=== PATIENT | female | born 1965 | race Caucasian/White ===

== ENCOUNTER 2020-01-23 23:28 | Inpatient (IN) | payer MEDICARE ==
[~2020-01-23] VITALS: Ht 154.9 cm; Wt 70.3 kg
[2020-01-24] MEDS ORDERED: FENTANYL CITRATE/PF 50MCG/ML 2ML VIAL IV ONE
[2020-01-24] MEDS ORDERED: NITROGLYCERIN 0.4MG TABLET SL SL ONE (00:30)
[2020-01-24 00:37] LABS: CHLORIDE 107 mEq/L (98-107)
[2020-01-24 00:38] LABS: BASOPHILS % 0.4 % (0.0-2.0); HEMATOCRIT. 32.2 % (36.0-48.0); HEMOGLOBIN. 10.4 g/dL (12.0-16.0); LYMPHOCYTES % 28.4 % (20.0-50.0); MEAN CORPUSCULAR HEMOGLOBIN 25.9 pg (28.0-32.0); MEAN CORPUSCULAR VOLUME 80.2 fL (81.0-99.0); MEAN PLATELET VOLUME 8.4 fl (7.4-10.4); MONOCYTES % 8.2 % (2.0-8.0); PLATELET 317 x1000/uL (130-400); RED BLOOD CELL COUNT 4.02 mill/uL (4.2-5.4); RED CELL DISTRIBUTION WIDTH 18.4 % (11.6-14.6)
[2020-01-24 00:41] LABS: ETHANOL BLOOD < 10 mg/dL
[2020-01-24] MEDS ORDERED: IOHEXOL-350 100 ML BOTTLE ONE (00:58)
[2020-01-24] MEDS ORDERED: FUROSEMIDE 20MG/2ML VIAL IVP ONE (01:00)
[2020-01-24] MEDS ORDERED: ASPIRIN 81MG TABLET PO ONE (02:00)
[2020-01-24] MEDS ORDERED: MORPHINE SULFATE 4 MG/ML CPJ (NOT FOR IM USE) IV ONE (02:00)
[2020-01-24 08:45] VITALS: BP 92/67
[2020-01-24] MEDS ORDERED: FURO-152 MT (10:23)
[2020-01-24] MEDS ORDERED: ASPI-986 MT (10:23)
[2020-01-24] MEDS ORDERED: CLOP75TA4 MT (10:23)
[2020-01-24] MEDS ORDERED: PANT40TA4 MT (11:23)
[2020-01-24] MEDS ORDERED: SACU1TAB MT (11:23)
[2020-01-24] MEDS ORDERED: CEPH500C2 MT (11:23)
[2020-01-24] MEDS ORDERED: CARV3.1242 MT (11:23)
[2020-01-24] MEDS ORDERED: ASPI-1158 MT (11:23)
[2020-01-24] MEDS ORDERED: SUCR1TAB PO (11:23)
[2020-01-24] MEDS ORDERED: SPIR25TA6 MT (11:23)
[2020-01-24] MEDS ORDERED: AMLO2.5T45 MT (11:23)
[2020-01-24] MEDS ORDERED: ATOR40TA70 MT (11:23)
[2020-01-24 12:14] VITALS: BP 90/67
[2020-01-24] MEDS ORDERED: REGADENOSON 0.4 MG/5 ML IV NR (13:00)
[2020-01-24] MEDS: CLOPIDOGREL 75MG TABLET PO SCH (13:28)
[2020-01-24] MEDS: ACETAMINOPHEN 325MG TABLET PO PRN ×2 (13:28→20:44)
[2020-01-24] MEDS ORDERED: ONDANSETRON HCL 4MG/2ML INJ IV PRN ×2 (13:30→16:15)
[2020-01-24] MEDS ORDERED: ACETAMINOPHEN 325MG TABLET PO PRN ×3 (13:30→16:15)
[2020-01-24] MEDS ORDERED: MAGNESIUM/ALUMINUM HYDROXIDE/SIMETHICONE 30ML UDC PO PRN ×2 (13:30→16:15)
[2020-01-24] MEDS ORDERED: CLONIDINE 0.1MG TABLET PO PRN ×2 (13:30→16:15)
[2020-01-24] MEDS: SODIUM CHLORIDE 0.9% INJ 3ML FLUSH IVF SCH ×2 (13:33→21:03)
[2020-01-24 15:48] LABS: CREATINE KINASE MB FRACTION 1.2 ng/mL (0.5-3.6)
[2020-01-24 15:49] LABS: T4 FREE 1.24 ng/dL (0.76-1.46)
[2020-01-24 16:00] VITALS: BP 113/79
[2020-01-24] MEDS ORDERED: MAGNESIUM HYDROXIDE 400MG/5ML 30ML UDC PO PRN (16:15)
[2020-01-24] MEDS ORDERED: DIPHENHYDRAMINE 50MG/ML VIAL IV PRN (16:15)
[2020-01-24] MEDS ORDERED: SIMETHICONE 80MG TABLET CHEW PO PRN (16:15)
[2020-01-24] MEDS ORDERED: BISACODYL 10MG SUPP PR PRN (16:15)
[2020-01-24] MEDS: DOCUSATE SODIUM 100MG CAPSULE PO SCH (17:12)
[2020-01-24] MEDS: SUCRALFATE 1 G/10 ML UDC PO SCH ×2 (17:12→20:45)
[2020-01-24] MEDS: PANTOPRAZOLE 40MG DR TABLET PO SCH (17:12)
[2020-01-24] MEDS ORDERED: ENOXAPARIN 80MG/0.8ML SYR SUBCUT SCH (18:00)
[2020-01-24 20:00] VITALS: BP 99/71
[2020-01-24] MEDS ORDERED: ZOLPIDEM TARTRATE 5MG TABLET PO PRN (21:00)
[2020-01-24] MEDS ORDERED: SODIUM CHLORIDE 0.9% INJ 3ML FLUSH IVF SCH (22:00)
[2020-01-25] VITALS: BP 124/82
[2020-01-25 00:05] LABS: CREATINE KINASE MB FRACTION 1.4 ng/mL (0.5-3.6)
[2020-01-25 04:00] VITALS: BP 100/71
[2020-01-25] MEDS: SODIUM CHLORIDE 0.9% INJ 3ML FLUSH IVF SCH ×3 (06:18→20:44)
[2020-01-25] MEDS: SUCRALFATE 1 G/10 ML UDC PO SCH ×4 (06:36→20:43)
[2020-01-25] MEDS: PANTOPRAZOLE 40MG DR TABLET PO SCH (06:36)
[2020-01-25 07:24] LABS: CREATINE KINASE MB FRACTION 1.4 ng/mL (0.5-3.6)
[2020-01-25 07:57] VITALS: BP 109/77
[2020-01-25 07:59] LABS: INR 1.3; PROTHROMBIN TIME 13.1 sec (9.6-11.0)
[2020-01-25] MEDS: CLOPIDOGREL 75MG TABLET PO SCH (09:00)
[2020-01-25] MEDS: DOCUSATE SODIUM 100MG CAPSULE PO SCH ×2 (09:00→17:09)
[2020-01-25] MEDS: ASPIRIN 81MG TABLET PO SCH (09:00)
[2020-01-25] MEDS ORDERED: REGADENOSON 0.4 MG/5 ML IV ONE (09:07)
[2020-01-25 11:34] VITALS: BP 112/83
[2020-01-25] MEDS: APIXABAN 5 MG TABLET PO SCH ×2 (14:14→17:09)
[2020-01-25 16:37] VITALS: BP 100/79
[2020-01-25] MEDS: METOCLOPRAMIDE HCL 10MG/2ML VIAL IV SCH (18:06)
[2020-01-25 20:00] VITALS: BP 114/77
[2020-01-25] MEDS: PANTOPRAZOLE SODIUM 40 MG/VIAL IV SCH (20:50)
[2020-01-25] MEDS: MORPHINE SULFATE 4 MG/ML CPJ (NOT FOR IM USE) IV PRN (20:51)
[2020-01-26] VITALS: BP 105/78
[2020-01-26] MEDS: METOCLOPRAMIDE HCL 10MG/2ML VIAL IV SCH ×4 (00:25→18:23)
[2020-01-26 04:00] VITALS: BP 108/77
[2020-01-26] MEDS: SODIUM CHLORIDE 0.9% INJ 3ML FLUSH IVF SCH ×2 (06:31→13:41)
[2020-01-26] MEDS: SUCRALFATE 1 G/10 ML UDC PO SCH ×4 (06:32→22:10)
[2020-01-26 07:37] LABS: BASOPHILS % 0.8 % (0.0-2.0); EOSINOPHILS % 1.7 % (0.0-5.0); HEMATOCRIT. 31.4 % (36.0-48.0); LYMPHOCYTES % 28.2 % (20.0-50.0); MEAN CORPUSCULAR HEMOGLOBIN 25.8 pg (28.0-32.0); MEAN CORPUSCULAR VOLUME 80.9 fL (81.0-99.0); MEAN PLATELET VOLUME 8.6 fl (7.4-10.4); MONOCYTES % 7.5 % (2.0-8.0); NEUTROPHILS % 61.8 % (40.0-76.0); PLATELET 282 x1000/uL (130-400); RED BLOOD CELL COUNT 3.88 mill/uL (4.2-5.4); RED CELL DISTRIBUTION WIDTH 18.3 % (11.6-14.6)
[2020-01-26 07:46] LABS: INR 1.3; PARTIAL THROMBOPLASTIN TIME 30.8 sec (23.4-31.0); PROTHROMBIN TIME 13.9 sec (9.6-11.0)
[2020-01-26 08:00] VITALS: BP 107/77
[2020-01-26 08:07] LABS: CHLORIDE 106 mEq/L (98-107)
[2020-01-26] MEDS: DOCUSATE SODIUM 100MG CAPSULE PO SCH ×2 (09:00→17:00)
[2020-01-26] MEDS: PANTOPRAZOLE SODIUM 40 MG/VIAL IV SCH ×2 (09:33→22:10)
[2020-01-26] MEDS: ASPIRIN 81MG TABLET PO SCH (09:36)
[2020-01-26] MEDS: APIXABAN 5 MG TABLET PO SCH ×2 (09:36→17:00)
[2020-01-26] MEDS: CLOPIDOGREL 75MG TABLET PO SCH (09:36)
[2020-01-26 15:23] VITALS: BP 100/76
[2020-01-26] MEDS ORDERED: MIDAZOLAM HCL 5 MG/5 ML VIAL ONE (16:40)
[2020-01-26] MEDS ORDERED: FENTANYL CITRATE/PF 50MCG/ML 2ML VIAL ONE (16:40)
[2020-01-26] MEDS ORDERED: MIDAZOLAM HCL 5 MG/5 ML VIAL IV PRN (16:43)
[2020-01-26] MEDS ORDERED: FENTANYL CITRATE/PF 50MCG/ML 2ML VIAL IV PRN (16:44)
[2020-01-27] MEDS: SODIUM CHLORIDE 0.9% INJ 3ML FLUSH IVF SCH ×4 (02:26→22:30)
[2020-01-27] MEDS: METOCLOPRAMIDE HCL 10MG/2ML VIAL IV SCH ×4 (02:26→17:31)
[2020-01-27] MEDS: SUCRALFATE 1 G/10 ML UDC PO SCH ×4 (06:25→22:29)
[2020-01-27 08:00] VITALS: BP 111/82
[2020-01-27] MEDS ORDERED: APIXABAN 5 MG TABLET PO SCH (09:00)
[2020-01-27] MEDS: DOCUSATE SODIUM 100MG CAPSULE PO SCH ×2 (09:01→17:31)
[2020-01-27] MEDS: ASPIRIN 81MG TABLET PO SCH (09:01)
[2020-01-27] MEDS: PANTOPRAZOLE SODIUM 40 MG/VIAL IV SCH ×2 (09:02→22:29)
[2020-01-27] MEDS: CLOPIDOGREL 75MG TABLET PO SCH (09:02)
[2020-01-27] MEDS: MORPHINE SULFATE 4 MG/ML CPJ (NOT FOR IM USE) IV PRN ×2 (09:34→15:39)
[2020-01-27] MEDS: APIXABAN 5 MG TABLET PO SCH ×2 (11:28→17:32)
[2020-01-27 12:00] VITALS: BP 116/79
[2020-01-27] MEDS: ACETAMINOPHEN 325MG TABLET PO PRN (14:41)
[2020-01-27 16:00] VITALS: BP 109/76
[2020-01-27 20:00] VITALS: BP 92/71
[2020-01-28] VITALS (9 sets, daily range): BP systolic 92–139; BP diastolic 71–97
[2020-01-28] MEDS: METOCLOPRAMIDE HCL 10MG/2ML VIAL IV SCH ×3 (00:01→12:15)
[2020-01-28] MEDS: MORPHINE SULFATE 4 MG/ML CPJ (NOT FOR IM USE) IV PRN (05:53)
[2020-01-28] MEDS: SUCRALFATE 1 G/10 ML UDC PO SCH ×2 (07:01→12:13)
[2020-01-28] MEDS: SODIUM CHLORIDE 0.9% INJ 3ML FLUSH IVF SCH ×2 (07:01→14:00)
[2020-01-28] MEDS ORDERED: FAMOTIDINE 20MG/2ML VIAL IV SCH (09:00)
[2020-01-28] MEDS: ASPIRIN 81MG TABLET PO SCH (12:11)
[2020-01-28] MEDS: CLOPIDOGREL 75MG TABLET PO SCH (12:11)
[2020-01-28] MEDS: DOCUSATE SODIUM 100MG CAPSULE PO SCH (12:11)
[2020-01-28] MEDS: APIXABAN 5 MG TABLET PO SCH (12:14)
[2020-01-31] MEDS ORDERED: APIX5TAB PO (02:37)
== END 2020-01-28 16:24 | disposition home or self-care (01) | DRG 391 ==
LOC: ER 23:28 → 6WST 01-24 02:41 → ENRESERV 01-24 08:10
PROVIDERS: ADMIT Internal Medicine; ATTEND Internal Medicine
PROC: 0DB78ZX Excision of Stomach, Pylorus, Via Natural or Artificial Opening Endoscopic, Diagnostic (ICD-10-PCS; principal; 2020-01-26)
DX: K29.70 Gastritis, unspecified, without bleeding (principal); I50.43 Acute on chronic combined systolic (congestive) and diastolic (congestive) heart failure; I82.401 Acute embolism and thrombosis of unspecified deep veins of right lower extremity; I42.9 Cardiomyopathy, unspecified; E87.2 Acidosis; I69.354 Hemiplegia and hemiparesis following cerebral infarction affecting left non-dominant side; I25.10 Atherosclerotic heart disease of native coronary artery without angina pectoris; K44.9 Diaphragmatic hernia without obstruction or gangrene; K21.9 Gastro-esophageal reflux disease without esophagitis; D64.9 Anemia, unspecified; E78.00 Pure hypercholesterolemia, unspecified; Z20.828 Contact with and (suspected) exposure to other viral communicable diseases; I08.1 Rheumatic disorders of both mitral and tricuspid valves; Z95.1 Presence of aortocoronary bypass graft; Z80.0 Family history of malignant neoplasm of digestive organs; Z82.49 Family history of ischemic heart disease and other diseases of the circulatory system; Z95.810 Presence of automatic (implantable) cardiac defibrillator; Z83.3 Family history of diabetes mellitus; Z98.82 Breast implant status; I25.2 Old myocardial infarction; Z79.899 Other long term (current) drug therapy; I25.9 Chronic ischemic heart disease, unspecified; K30 Functional dyspepsia; I11.0 Hypertensive heart disease with heart failure
CPT/HCPCS: 36415; 71045; 71275; 78452; 80053; 80061; 80320; 82550; 82553; 83036; 83605; 83880; 84439; 84443; 84484; 85025; 85379; 86850; 86900; 87426; 88305; 93005; 93017; 93306; 93970; 97162; 97166; 97168; 99285; A9500; C9113; J1940; J2250; J2270; J2765; J2785; J3010; J3490; J7040; Q9967; G0480